=== PATIENT | female | born 1990 | race American Indian/Alaskan Native ===

== ENCOUNTER 2019-01-18 05:25 | Inpatient (IN) | payer MEDICAID ==
--- NOTE | 2019-01-17 20:14 | History and Physical Report ---
History of Present Illness Date of examination: 01/18/19 History of present illness: Patient admitted for repeat section. Patient informed the risks of the surgery include bleeding possibly bleeding heavy enough to require blood transfusion, infection possible damage to bowel bladder ureter. Patient understands that due to her previous surgery she is an increased risks of adjacent organ damage. Patient's questions answered. Patient understands and desires to proceed. Menstrual History Regularity: irregular Menses every: 30 days Duration: 5 LMP: 03/10/2018 LMP reliability: unknown LMP character: heavier test type: urine test Date: 06/10/2018 BC at conception: other hormonal Planned ? no EDC Confirmation: 01/24/2019 Past History : 2 Term Births: 1 Premature Births: 0 Living Children: 1 Para: 1 Mult. Births: 0 Prev : 1 Prev. attempt? 0 Aborta: 0 Elect. Ab: 0 Spont. Ab: 0 Ectopics: 0 # 1 Delivery date: 2013 Weeks Gestation: term Delivery type: Anesthesia type: epidural Infant Sex: Male weight: 8-11 Comments: pt states the baby was "stuck" Past Medical History: Asthma inhaler occasional Past Surgical History: Past Medical History Surgery (Non-manager database): Abnormal PAP: negative JANNIE Exposure: negative Infertility: negative Uterine Anomaly: negative Uterine Surgery (not C/S): negative Other Gynecologic Problems: negative Infection History Hx of STD: none HIV Risk Eval: low risk Hepatitis B Risk Eval: low risk Personal hx. of genital herpes: no Partner hx. of genital herpes: no Rash, Viral, or Febrile illness since last LMP? no Varicella/Chicken Pox Status: Unknown TB Risk: no Genetic History Congenital Heart Defect: Mom: no Dad: no Miracle Disease: Mom: no Dad: no Thalassemia Mom: no Dad: no Neural Tube Defect Mom: no Dad: no Down's Syndrome Mom: no Dad: no Cresencio-Sachs Mom: no Dad: no Sickle Cell Disease/Trait Mom: no Dad: no Hemophilia Mom: no Dad: no Muscular Dystrophy Mom: no Dad: no Cystic Fibrosis Mom: no Dad: no [place] Chorea Mom: no Dad: no Mental Retardation Mom: no Dad: no Fragile X Mom: no Dad: no Other Genetic/Chromosomal Disorder Mom: no Dad: no Child w/other defect Mom: no Dad: no Enviromental Exposures Xray Exposure: no Medication, drug, or alcohol use since LMP: no Chemical/Other Exposure: no Exposure to Cat Liter: no Hx of Parvovirus (Fifth Disease): no Occupational Exposure to Children: none Current Allergies (reviewed today): No known allergies Past History Past Medical History: asthma, other (See HPI) Past Surgical History: section, other (See HPI) YARN SIZER History: other (See HPI) Family/Genetic History: other (See HPI) Social history: full code, other (See HPI) - Obstetrical History Expected Date of Delivery: 01/24/19 Actual Gestation: 39 Week(s) 1 Day(s) : 2 Para: 1 Hx # Term Pregnancies: 1 Number of Pregnancies: 0 Spontaneous Abortions: 0 Induced : 0 Number of Living Children: 1 Medications and Allergies Allergies Allergy/AdvReac Type Severity Reaction Status Date / Time No Known Allergies Allergy Verified 01/18/19 05:31 Review of Systems Constitutional: other (See HPI) - Physical Exam Breasts: Positive: deferred Cardiovascular: Regular rate Lungs: Positive: Normal air movement Abdomen: Positive: normal appearance Genitourinary (Female): Positive: normal external genitalia Vagina: Positive: normal moisture Uterus: Positive: enlarged Extremities: Positive: edema Results Result Diagrams: 01/18/19 05:54 All other labs normal. Assessment and Plan - Patient Problems (1) Uterine scar from previous delivery affecting Current Visit: No Status: Acute Plan to address problem: Patient informed the risks of the surgery include bleeding possibly bleeding heavy enough to require blood transfusion, infection possible damage to bowel bladder ureter. All questions answered. Patient agrees to proceed (2) BMI 50.0-59.9, adult Current Visit: Yes Status: Acute (3) Gestational diabetes Current Visit: Yes Status: Acute Qualifiers: Gestational diabetes mellitus control: unspecified Trimester: third trimester Qualified Code(s): O24.419 - Gestational diabetes mellitus in , unspecified control
[2019-01-18] MEDS: LACTATED RINGERS 1,000 ML IV SCH ×2 (05:54→06:19)
[2019-01-18 06:04] LABS: Hematocrit 36.6 % (30.3-42.9); Hemoglobin 12.2 gm/dl (10.1-14.3); Mean Corpuscular HGB Conc 33 % (30-34); Mean Corpuscular Volume 87 fl (79-97); Platelet Count 269 K/mm3 (140-440); Red Cell Distribution Width 13.8 % (13.2-15.2)
[2019-01-18 07:00] LABS: Band Neutrophils # (Manual) 1.7 K/mm3; Basophils % (Manual) 0 % (0.0-1.8); Eosinophils % (Manual) 0 % (0.0-4.3); Large Platelets Rare; Total Cells Counted 100
[2019-01-18] MEDS ORDERED: BICITRA PO ONE (07:00)
[2019-01-18] MEDS ORDERED: ceFAZolin 3 GM in NACL 0.9% 100 ML IV NR (07:00)
[2019-01-18] MEDS ORDERED: PITOCin/NS 20 UNIT/1000ML DRIP 20 UNITS/1,000 ML BAG IV SCH ×2 (07:00→12:53)
[2019-01-18] MEDS ORDERED: PEPCID IV ONE (07:00)
[2019-01-18] MEDS ORDERED: REGLAN IV ONE (07:00)
[2019-01-18 07:01] LABS: RBC Morphology Normal
[2019-01-18] MEDS ORDERED: SUBLIMAZE ONE (07:08)
[2019-01-18] MEDS ORDERED: ASTRAMORPH PF 10MG/10ML ONE (07:09)
--- NOTE | 2019-01-18 07:19 | Anesthesia Consultation ---
Anesthesia Consult and Med Hx - Airway Anesthetic Teeth Evaluation: Poor ROM Head & Neck: Adequate Mental/Hyoid Distance: Adequate Mallampati Class: Class III Intubation Access Assessment: Probably Good - Pulmonary Exam CTA: Yes - Cardiac Exam Cardiac Exam: RRR - Pre-Operative Health Status ASA Pre-Surgery Classification: ASA3 Proposed Anesthetic Plan: Spinal - Pulmonary Hx Smoking: No Hx Asthma: Yes (last used inhaler 9mths ago) Hx Respiratory Symptoms: No SOB: No COPD: No Home Oxygen Therapy: No Hx Pneumonia: No Hx Sleep Apnea: No - Cardiovascular System Hx Hypertension: No Hx Coronary Artery Disease: No Hx Heart Attack/AMI: No Hx Angina: No Hx Percutaneous Transluminal Coronary Angioplasty (PTCA): No Hx Cardia Arrhythmia: No Hx Pacemaker: No Hx Internal Defibrillator: No Hx Valvular Heart Disease: No Hx Heart Murmur: No Hx Peripheral Vascular Disease: No - Central Nervous System Hx Neuromuscular Disorder: No Hx Seizures: No CVA: No Hx Back Pain: No Hx Psychiatric Problems: No - Gastrointestinal Hx Ulcer: No Hx Gastroesophageal Reflux Disease: Yes (controlled) - Endocrine Hx Renal Disease: No Hx End Stage Renal Disease: No Hx Cirrhosis: No Hx Liver Disease: No Hx Insulin Dependent Diabetes: No Hx Non-Insulin Dependent Diabetes: No Hx Thyroid Disease: No Hx Hypothyroidism: No Hx Hyperthyroidism: No - Hematic Hx Anemia: No Hx Sickle Cell Disease: No - Other Systems Hx Alcohol Use: No Hx Substance Use: No Hx Cancer: No Hx Obesity: No
--- NOTE | 2019-01-18 07:20 | Anesthesia Day of Surgery ---
Anesthesia Day of Surgery - Day of Surgery Patient Examined: Yes Patient H&P Reviewed: Yes Patient is NPO: Yes Beta Blockers: No Cardiac Clearance: No Pulmonary Clearance: No Bar's Test: N/A
[2019-01-18] MEDS ORDERED: PHENERGAN PR PRN (07:30)
[2019-01-18] MEDS ORDERED: ZOFRAN IV PRN (07:30)
[2019-01-18] MEDS ORDERED: PHENERGAN PO PRN (07:30)
[2019-01-18] MEDS ORDERED: NARCAN 0.4 MG/1 ML IV PRN ×2 (07:30→12:53)
[2019-01-18] MEDS ORDERED: WATER FOR IRRIG STERILE IR ONE (07:40)
[2019-01-18] MEDS ORDERED: NACL 0.9% IR ONE (07:40)
[2019-01-18] MEDS ORDERED: fentaNYL-BUPIV 2 MCG/ML-0.125% 200 MCG/100 ML BAG EPIDURAL SCH (08:00)
[2019-01-18] MEDS ORDERED: SODIUM CHLORIDE FLUSH SYRINGE 10 ML IV PRN (08:00)
--- NOTE | 2019-01-18 08:46 | Operative Report ---
Operative Report Operative Report: Date of procedure: 01/18/2019 Pre-operative diagnosis: Intrauterine at 39 weeks with previous mayelin an section Post-operative diagnosis: Same plus breech presentation of Procedure name(s): Repeat low transverse section Surgeon: Dandy Waters MD Industrial Relations Analyst:Zoraida Reilly, certified nurse esthetician Anesthesia: Spinal EBL: 900 mL Complications: None Findings: Normal uterus tubes and ovaries, male double footling breech presentation, weight 8 lbs. 5oz., Apgars 8 at 1 minute 9 at 5 minutes Specimen(s): None Procedure: The patient was brought to the operating room. A spinal was placed without any complications. She was then placed in left lateral tilt. Panniculus was taped in order to expose the lower abdomen and mons. Patient was prepped and draped in the usual sterile manner. After testing for adequate anesthesia level, a Pfannenstiel incision was made. This incision was taken down to the fascia. The fascia was then nicked in the midline. This incision was extended out laterally with Gtz scissors. The fascia was then sharply and bluntly from the underlying rectus muscles. The rectus muscles were bluntly and sharply . The peritoneum was then entered with the tuber machine operator helper's fingers. This incision was spread vertically with care not to damage the bladder below. The bladder flap was then formed sharply and bluntly with Metzenbaum scissors. A transverse incision was made in lower uterine segment. This incision was extended laterally with the operators fingers. The amniotic sac was then entered bluntly with the tuber machine operator helper's fingers. The was delivered by delivered by grafts and both infants feet and delivering through the incision followed by the breech. The breech was then grasped with a wet towel and carefully each upper extremities were flexed and delivered through the incision. The after coming head was then delivered safely. The infant was bulb suctioned on the mother's abdomen. Cord was double clamped and cut. The was then passed to the nursery personnel who were in attendance. The above scores were given by the nursery personnel. The placenta was then bluntly removed. The uterus was then externalized and wiped clean the remaining products. The uterine incision was closed in layers. The first incision was closed in a locking manner using 0 Vicryl. This was followed by imbricating stitch also with 0 Vicryl. This closure was hemostatic. The bladder flap was copiously irrigated and found to be hemostatic. The pelvis was copiously irrigated and found to be hemostatic. The uterus was then placed back to the patient's abdomen. The retractors were removed. The rectus muscles were inspected and found to be hemostatic. The fascia was then closed in a running manner using 0 Vicryl. This incision was hemostatic irrigation Bovie. The skin was reapproximated with 4-0 Vicryl subcuticularly. The patient tolerated procedure well. Her urine was clear. The infant was admitted to the [facility] nursery. The patient was accompanied to recovery room in good condition. Instrument count correct X 3. .
--- NOTE | 2019-01-18 09:07 | Post Anesthesia Evaluation ---
- Post Anesthesia Evaluation Patient Participated: Yes Airway Patent: Yes Stable Respiratory Function: Yes Nausea/Vomiting: No Temp > 96.8F: Yes Pain Manageable: Yes Adequeate Hydration: Yes Anesthesia Complications: No Block Receding Appropriately: Yes Patient on Ventilator: No
[2019-01-18] MEDS ORDERED: TORADOL ONE (10:53)
[2019-01-18] MEDS ORDERED: SODIUM CHLORIDE FLUSH SYRINGE 10 ML IV SCH (12:53)
[2019-01-18] MEDS ORDERED: TORADOL IV PRN (12:53)
[2019-01-18] MEDS ORDERED: LANSINOH TP PRN (12:53)
[2019-01-18] MEDS ORDERED: TUCKS PAD TP PRN (12:53)
[2019-01-18] MEDS ORDERED: D5LR 1,000 ML IV SCH (13:53)
[2019-01-18] MEDS: FEOSOL PO SCH (16:58)
[2019-01-18] MEDS: ANCEF/NS 1 GM/50 ML 1 GM/50 ML BAG IV SCH (16:58)
[2019-01-18] MEDS: PRENATAL VITAMIN PO SCH (16:58)
[2019-01-18 22:08] LABS: Hematocrit 36.1 % (30.3-42.9); Hemoglobin 11.8 gm/dl (10.1-14.3)
[2019-01-19] MEDS: ANCEF/NS 1 GM/50 ML 1 GM/50 ML BAG IV SCH (00:37)
--- NOTE | 2019-01-19 08:38 | Progress Note ---
Assessment and Plan patient doing well, no complaints. Sitting up eating regular breakfast. Incision D&I. VSSAF, keronhia scant, H&H 11.8/36.1. Encouraged to advance activity as tolerated today. Continue postop pathway. - Patient Problems (1) delivery delivered Current Visit: Yes Status: Acute Subjective - Subjective Date of service: 01/19/19 Principal diagnosis: postop day #1 s/p repeat c/s Patient reports: appetite normal, voiding normally, pain well controlled, flatus, ambulating normally, no dizzy ambulation, no nauseated : doing well (in nursery for testing per patient) Objective - Vital Signs Latest vital signs: Vital Signs Temp Pulse Resp BP BP Pulse Ox 01/19/19 07:16 98.5 F 87 18 121/80 01/19/19 04:05 98.4 F 78 18 120/64 97 01/19/19 00:00 98.4 F 76 18 114/62 96 01/18/19 20:31 16 01/18/19 20:05 98.2 F 81 18 113/63 95 01/18/19 20:01 20 01/18/19 16:17 98.7 F 92 H 18 106/61 97 01/18/19 12:47 98.8 F 96 H 18 108/62 94 01/18/19 10:19 98.3 F 90 16 132/53 96 01/18/19 10:00 98.1 F 96 H 18 126/75 95 01/18/19 09:55 96 H 18 126/60 95 01/18/19 09:40 85 18 113/44 95 01/18/19 09:25 82 17 114/55 95 01/18/19 09:11 90 20 111/51 95 01/18/19 09:06 92 H 20 111/43 95 01/18/19 09:00 94 H 20 124/97 95 01/18/19 08:58 98.6 F 92 H 20 115/88 95 Intake and Output 01/18/19 01/19/19 01/19/19 23:59 07:59 15:59 Intake Total 770 720 Output Total 1400 200 Balance -630 520 Intake: IV 50 ANCEF/NS 1 GM/50 ML 1 gm 50 In 50 ml @ 100 mls/hr IV Q8H [facility] Rx#:[id number] Oral 720 720 Output: Urine 1400 200 Indwelling Catheter 1400 Void 200 Other: Total, Intake Amount 240 480 Total, Output Amount 600 200 # Voids Indwelling Catheter 1 - Exam Breasts: Present: normal, Cardiovascular: Present: Regular rate Lungs: Present: Clear to auscultation, Normal air movement Abdomen: Present: normal appearance, soft. Absent: distention, tenderness Vulva: both: normal Uterus: Present: normal, firm, fundal height at umbilicus Extremities: Present: normal Incision: Present: normal, dry, intact
[2019-01-19] MEDS: NORCO 5/325 PO PRN ×2 (09:21→17:48)
[2019-01-19] MEDS: FEOSOL PO SCH (10:55)
[2019-01-19] MEDS: PRENATAL VITAMIN PO SCH (10:55)
[2019-01-19] MEDS ORDERED: AFLURIA QUAD 2018-2019 SYRINGE IM ONE (12:00)
[2019-01-20] MEDS: IBUPROFEN PO PRN ×3 (05:48→17:37)
[2019-01-20] MEDS: NORCO 5/325 PO PRN (05:48)
--- NOTE | 2019-01-20 10:28 | Progress Note ---
Assessment and Plan POD2 s/p repeat c/s. Patient reports feeling well, no complaints. Fundus firm, ML, U/1, bleeding small. Incision is healing well, no s/s infection, well approximated, no drainage or bleeding. DWP keeping area clean and dry, good hygiene habits. Patient reports both breast and bottle feeding, both are going well, no complaints. Encourages ambulation and IS to prevent pneumonia. VSSAF. Continue post op pathway, will plan for discharge tomorrow. Subjective - Subjective Date of service: 01/20/19 Principal diagnosis: postop day #2 s/p repeat c/s Patient reports: appetite normal, voiding normally, pain well controlled, f latus, ambulating normally : doing well Objective - Vital Signs Latest vital signs: Vital Signs Temp Pulse Resp BP BP Pulse Ox 01/20/19 09:10 98.7 F 88 20 116/58 96 01/19/19 17:48 18 01/19/19 16:37 99.2 F 98 H 18 130/72 96 Intake and Output 01/19/19 01/20/19 01/20/19 23:59 07:59 15:59 Intake Total 480 Output Total 400 Balance 80 Intake: Oral 480 Output: Urine 400 Void 400 Other: Total, Intake Amount 480 Total, Output Amount 400 # Voids Void 1 - Exam Breasts: Present: normal Cardiovascular: Present: Regular rate, Normal S1, Normal S2 Lungs: Present: Clear to auscultation Abdomen: Present: normal appearance, soft Uterus: Present: normal, firm Extremities: Present: normal Incision: Present: normal, dry, intact
[2019-01-20] MEDS: PRENATAL VITAMIN PO SCH (11:02)
[2019-01-20] MEDS: FEOSOL PO SCH (11:02)
--- NOTE | 2019-01-21 08:29 | Discharge Summary ---
Providers - Providers Date of Admission: 01/18/19 08:15 Date of discharge: 01/21/19 Attending physician: GIANLUCA MCGRATH Primary care physician: GIANLUCA MGCRATH Hospitalization Reason for admission: repeat c/s Condition: Good Pertinent studies: postop H&H 11.8/36.1 Procedures: repeat c/s Hospital course: uncomplicated repeat c/s and postop course Disposition: DC-01 TO HOME OR SELFCARE - Discharge Diagnoses (1) delivery delivered Status: Acute (2) BMI 50.0-59.9, adult Status: Acute Core Measure Documentation - Palliative Care Palliative Care/ Comfort Measures: Not Applicable - Core Measures Any of the following diagnoses?: none Exam - Constitutional Vitals: Temp Pulse Resp BP Pulse Ox 98.2 F 79 18 121/76 100 01/21/19 00:00 01/21/19 00:00 01/21/19 00:00 01/21/19 00:00 01/20/19 16:57 General appearance: Present: no acute distress, well-nourished - EENT Eyes: Present: PERRL ENT: hearing intact, clear oral mucosa - Neck Neck: Present: supple, normal ROM - Respiratory Respiratory effort: normal Respiratory: bilateral: CTA - Cardiovascular Heart Sounds: Present: S1 & S2. Absent: rub, click - Extremities Extremities: pulses symmetrical, No edema Peripheral Pulses: within normal limits - Abdominal General gastrointestinal: Present: soft, non-tender, non-distended, normal bowel sounds Female genitourinary: Present: normal - Integumentary Integumentary: Present: clear, warm, dry - Musculoskeletal Musculoskeletal: gait normal, strength equal bilaterally - Psychiatric Psychiatric: appropriate mood/affect, intact judgment & insight - Neurologic Neurologic: CNII-XII intact, moves all extremities - Additional findings Additional findings: lochia scant, incision D&I, fundus firm, bottle feeding Plan Activity: advance as tolerated Diet: regular Wound: open to air, keep clean and dry Follow up with: GIANLUCA MCGRATH MD [Primary Care Provider] - 7 Days (Congratulations!! Please call [phone] to schedule your incision check and your son's circumcision. Bring EMLA cream to your son's appointment and await further teaching. Call for any questions or concerns.)
[2019-01-21] MEDS: FEOSOL PO SCH (10:39)
[2019-01-21] MEDS: PRENATAL VITAMIN PO SCH (10:40)
[2019-01-21 15:03] VITALS: BP 141/81
== END 2019-01-21 15:00 | disposition home or self-care (01) | DRG 766 ==
LOC: APU 05:25 → UNDOADMIN 05:25 → APU 08:15 → OB 10:29
PROVIDERS: ADMIT Obstetrics & Gynecology; ATTEND Obstetrics & Gynecology
PROC: 10D00Z1 Extraction of Products of Conception, Low, Open Approach (ICD-10-PCS; principal; 2019-01-18)
DX: O32.8XX0 Maternal care for other malpresentation of fetus, not applicable or unspecified (principal); O34.211 Maternal care for low transverse scar from previous cesarean delivery; Z3A.39 39 weeks gestation of pregnancy; Z37.0 Single live birth; O99.52 Diseases of the respiratory system complicating childbirth; O99.62 Diseases of the digestive system complicating childbirth; O24.429 Gestational diabetes mellitus in childbirth, unspecified control; K21.9 Gastro-esophageal reflux disease without esophagitis; J45.909 Unspecified asthma, uncomplicated
CPT/HCPCS: 36415; 82962; 85007; 85014; 85018; 85025; 86762; 86850; 86900; 86901; G0378; C1765; J0690; J1885; J2274; J2590; J2765; J3010; J7120; J7121